=== PATIENT | male | born 1975 | race Two or more races ===

== ENCOUNTER 2025-08-07 06:00 | Day surgery (SDC) | payer OTHER ==
[2025-07-25 14:02] VITALS: BP 130/91
[~2025-08-07] VITALS: Ht 185.4 cm; Wt 145.1 kg
[2025-08-07] MEDS ORDERED: CEFTRIAXONE SODIUM 2,000 MG VIAL ONE (07:07)
[2025-08-07] MEDS ORDERED: METRONIDAZOLE/SODIUM CHLORIDE 500 MG/100 ML PIGGYBACK IV ONE (07:07)
[2025-08-07] MEDS ORDERED: LIDOCAINE HCL 1%/EPINEPHRINE 20ML VIAL IJ ONE (07:10)
[2025-08-07] MEDS ORDERED: HEMOSTATIC MATRIX 1 KIT KIT TOP ONE (07:10)
[2025-08-07] MEDS ORDERED: POVIDONE-IODINE 118 ML BOTT TOP ONE (07:10)
[2025-08-07] MEDS ORDERED: DIBUCAINE 30 GM TUBE ONE (07:10)
[2025-08-07] MEDS ORDERED: BUPIVACAINE HCL/MPF 0.5% 30ML VIAL ONE (07:10)
[2025-08-07] MEDS ORDERED: TAMSULOSIN HCL 0.4 MG CAP PO ONE ×2 (09:00→10:45)
[2025-08-07] MEDS ORDERED: OXYCODONE HCL5 MG PO (10:05)
== END 2025-08-07 12:25 | disposition home or self-care (01) ==
LOC: CIR.AMB 06:00
PROVIDERS: ATTEND Surgery
DX: K64.2 Third degree hemorrhoids (principal); K64.4 Residual hemorrhoidal skin tags; K62.5 Hemorrhage of anus and rectum